=== PATIENT | female | born 1970 | race Caucasian/White ===

== ENCOUNTER 2016-07-02 17:37 | Emergency (ER) | payer MEDICAID ==
[~2016-07-02] VITALS: Ht 165.1 cm; Wt 83.0 kg
[~2016-07-02 17:37] MED LIST: ANXIETY MED; CEFD300C37 PO; CLIN300C93 PO; ENOX80SY5 SQ; NORCO PO; SULF1TAB24 PO; TRAM50TA2 PO; WARF10TA PO
[2016-07-02 17:39] VITALS: BP 130/88
[2016-07-02] MEDS ORDERED: OXYcodone/APAP 5/325MG TABLET PO ONE (19:00)
[2016-07-02] MEDS ORDERED: OXYcodone/APAP 5/325MG TABLET ONE (19:09)
== END 2016-07-02 19:18 | disposition home or self-care (01) ==
LOC: ED 19:00
DX: S60.212A Contusion of left wrist, initial encounter (principal); X58.XXXA Exposure to other specified factors, initial encounter; Y93.89 Activity, other specified; Y99.8 Other external cause status; Y92.89 Other specified places as the place of occurrence of the external cause
CPT/HCPCS: 29125; 96372

== ENCOUNTER 2017-09-25 19:54 | Emergency (ER) | payer MEDICAID ==
[~2017-09-25] VITALS: Ht 165.1 cm; Wt 83.3 kg
[~2017-09-25 19:54] MED LIST changes: +CLIN300C8 PO; -CLIN300C93 PO
[2017-09-25 20:20] LABS: MEAN CORPUSCULAR HEMOGLOBIN 31.2 pg (27.0-34.8); MEAN CORPUSCULAR HGB CONC 34.3 g/dL (32.4-35.8); MEAN CORPUSCULAR VOLUME 91.1 fL (80-100); MEAN PLATELET VOLUME 7.4 fL (7.4-10.4); PLATELET COUNT 351 x10^3/uL (130-400); RED CELL DISTRIBUTION WIDTH 12.2 % (9.6-15.2)
[2017-09-25 20:30] LABS: ALANINE AMINOTRANSFERASE 97 U/L (12-78); ALBUMIN 3.4 g/dL (3.4-5.0); ANION GAP 7 mmol/L (5-15); CALCIUM 8.7 mg/dL (8.5-10.1); CHLORIDE 103 mmol/L (98-107); CREATININE 0.73 mg/dL (0.55-1.02)
[2017-09-25 20:32] LABS: ALKALINE PHOSPHATASE 80 U/L (45-117); BILIRUBIN,TOTAL 0.5 mg/dL (0.2-1.0); TOTAL PROTEIN 7.6 g/dL (6.4-8.2)
[2017-09-25 20:33] LABS: MICROSCOPIC NOT IND
[2017-09-25 20:34] LABS: CULTURE INDICATED? NO
[2017-09-25 20:39] LABS: MD YES
[2017-09-25 20:43] LABS: INTERNATIONAL NORMALIZED RATIO 0.96 (0.93-1.1)
[2017-09-25 21:06] LABS: BASOS#(MANUAL) 0.08 x10^3/uL (0-0.1); BASOS% (MANUAL) 1 % (0-1); EOS#(MANUAL) 1.68 x10^3/uL (0.0-0.4); EOS% (MANUAL) 21 % (1-7); LYMPH#(MANUAL) 2.32 x10^3/uL (1-3.4); LYMPHS% (MANUAL) 29 % (22-44); MONOS% (MANUAL) 5 % (2-9); REACTIVE LYMPHS % (MANUAL) 5 % (0-0); SEG#(MANUAL) 3.12 x10^3/uL (1.8-6.8); SEGS% (MANUAL) 39 % (42-75)
[2017-09-25 21:07] LABS: <PLATELET ESTIMATE> ADEQUATE; <PLT MORPHOLOGY> NORMAL PLT MORPH; <RBC MORPHOLOGY> NORMAL
[2017-09-25] MEDS ORDERED: ONDANSETRON ODT 4 MG ONE (21:09)
[2017-09-25 21:24] LABS: AMPHETAMINE SCREEN, URINE Positive (Negative); BARBITURATE SCREEN, URINE Negative (Negative); BENZODIAZEPINE SCREEN, URINE Negative (Negative); CANNABINOID SCREEN, URINE Negative (Negative); COCAINE SCREEN, URINE Negative (Negative); METHADONE SCREEN, URINE Negative (Negative); OPIATE SCREEN, URINE Negative (Negative)
[2017-09-25] MEDS ORDERED: ONDANSETRON ODT 4 MG PO ONE (21:30)
[2017-09-25 22:24] VITALS: BP 113/80
[2017-09-25] MEDS ORDERED: PROMETHAZINE 25 MG/ML, 1ML IM ONE (22:30)
[2017-09-25] MEDS ORDERED: PROMETHAZINE 25 MG/ML, 1ML ONE (22:40)
== END 2017-09-25 23:32 | disposition home or self-care (01) ==
LOC: ED 21:48
DX: R11.0 Nausea (principal); F15.129 Other stimulant abuse with intoxication, unspecified; R10.9 Unspecified abdominal pain; I10 Essential (primary) hypertension; R30.0 Dysuria; M54.5 Low back pain; Z86.718 Personal history of other venous thrombosis and embolism; Z90.89 Acquired absence of other organs; Z90.49 Acquired absence of other specified parts of digestive tract; Z90.710 Acquired absence of both cervix and uterus; Z85.01 Personal history of malignant neoplasm of esophagus; Z72.89 Other problems related to lifestyle; Z91.14 Patient's other noncompliance with medication regimen; Z60.9 Problem related to social environment, unspecified
CPT/HCPCS: 36415; 74176; 80053; 80307; 81003; 85025; 85610; 85730; 96372; 99285; J2550; Q0162